=== PATIENT | female | born 1940 | race Caucasian/White ===

== ENCOUNTER 2017-03-02 07:43 | Day surgery (SDC) | payer OTHER ==
[~2017-03-02] VITALS: Ht 157.5 cm; Wt 40.0 kg
[2017-03-02] MEDS ORDERED: SODIUM CHLOR 0.9% 1000 ML IV SCH (08:00)
[2017-03-02 08:01] VITALS: BP 158/100; PULSE 99; RESP 18; TEMP 97.9; O2SAT 94
[2017-03-02] MEDS ORDERED: FENO160T PO (08:03)
[2017-03-02] MEDS ORDERED: ASPI325T PO (08:03)
[2017-03-02] MEDS ORDERED: AMLO5TAB2 PO (08:03)
[2017-03-02] MEDS ORDERED: NIAC100T2 PO (08:03)
[2017-03-02 08:25] LABS: AUTOMATED NEUTROPHIL # 5.9 TH/MM3 (1.8-7.7); BASOPHIL # 0.2 TH/MM3 (0-0.2); BASOPHIL % 2.2 % (0.0-2.0); EOSINOPHIL # 0.2 TH/MM3 (0-0.4); EOSINOPHIL % 1.9 % (0.0-4.0); HEMATOCRIT 39.5 % (35.0-46.0); HEMO FLAGS DIFF FINAL; LYMPH % 22.2 % (9.0-44.0); LYMPHOCYTE # 1.9 TH/MM3 (1.0-4.8); MEAN CELL VOLUME 84.7 FL (80.0-100.0); MEAN CORPUSCULAR HEMOGLOBIN 28.4 PG (27.0-34.0); MEAN CORPUSCULAR HGB CONC 33.5 % (32.0-36.0); MONO % 5.8 % (0.0-8.0); NEUT % 67.9 % (16.0-70.0); PLATELET COUNT 314 TH/MM3 (150-450); RED BLOOD COUNT 4.66 MIL/MM3 (4.00-5.30); RED CELL DISTRIBUTION WIDTH 17.1 % (11.6-17.2); WHITE BLOOD COUNT 8.6 TH/MM3 (4.0-11.0)
[2017-03-02 08:35] LABS: APTT (PATIENT) 32.7 SEC (24.3-30.1)
[2017-03-02] MEDS ORDERED: LIDOCAINE 1%/EPINEPHrine 1:100,000 SOLN 20 ML VIAL ONE (08:38)
[2017-03-02 08:55] VITALS: BP 108/60; PULSE 98; RESP 18; TEMP 97.9; O2SAT 96
[2017-03-02] MEDS ORDERED: fentaNYL CITRATE 250 MCG/5 ML AMP ONE (09:17)
--- NOTE | 2017-03-02 11:18 | RADRPT ---
EXAM DATE/TIME: 03/02/2017 09:20 [place] COMPARISON: No previous studies available for comparison. INDICATIONS : Hilar mass. RADIATION DOSE: 10.42 CTDIvol (mGy) MEDICAL HISTORY : Hypertension. SURGICAL HISTORY : None. ENCOUNTER: Initial ACUITY: 1 day PAIN SCALE: 0/10 LOCATION: Right chest TECHNIQUE: Volumetric scanning of the chest was performed. Using automated exposure control and adjustment of t he mA and/or kV according to patient size, radiation dose was kept as low as reasonably achievable to obtain optimal diagnostic quality images. DICOM format image data is available electronically for r eview and comparison. Follow-up recommendations for incidentally detected pulmonary nodules are based at a minimum on nodul e size and patient risk factors according to Fleischner Society Guidelines. FINDINGS: Multiple attempts were made to obtain access to the hilar mass on the right. This was unsuccessful b ecause of the location of the mass, surrounded by pulmonary artery and vein. Compared to the preoperative study th ere is increasing parenchymal changes anteriorly in the right lung involving upper lobe and lower lobe. Left lung is clear. CONCLUSION: 1. I do not have percutaneous access to the hilar mass on the right. Bronchoscopic biopsy may be of benefit. 2. 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 Yonas Payan MD FACR on March 02, 2017 at 11:03 Board Certified Radiologist. This report was verified electronically.
== END 2017-03-02 10:20 | disposition home or self-care (01) ==
LOC: HRAD 07:43 → HRIP 07:44 → HRAD 10:20
PROVIDERS: ATTEND Nurse Practitioner Family
DX: R91.8 Other nonspecific abnormal finding of lung field (principal); I10 Essential (primary) hypertension; Z01.818 Encounter for other preprocedural examination
CPT/HCPCS: 71250; 85025; 85610; 85730; G0463; J3010; J7030; 99211